=== PATIENT | male | born 1950 | race Caucasian/White ===

== ENCOUNTER 2025-05-05 07:23 | Day surgery (SDC) | payer MEDICARE, OTHER, SELFPAY ==
[2025-05-05] VITALS (10 sets, daily range): BP systolic 112–177; BP diastolic 61–76; BMI 35.5
[2025-05-05 08:04] LABS: Glucose - Point of Care 101 mg/dl (70-99)
[2025-05-05] MEDS: NSS 327 ML IV (08:14)
[2025-05-05] MEDS: LOW STRENGTH ASPIRIN 81 MG PO (08:15)
--- NOTE | 2025-05-05 14:19 | CONSULT.STRU ---
Consultation
-
Date/Time Consultation Requested: 05/05/2025 1100
Date/Time Consultation Performed: 05/05/2025 1230
Requesting Provider: Dr. Wanda Contreras
Performing Provider: FRANKIE Munguia
Reason for Consultation: Aortic stenosis/ TAVR evaluation
Patient History
Physicians
Family Physician: Curt Stern
Outpatient Handle Attacher: Moises Potts
Primary Handle Attacher: Moises Potts
History of Present Illness
Mr. Pérez is a pleasant 74yo male with past medical history that is significant for HTN, hyperlipidemia, DM type 2 and interstitial lung disease/ pulmonary fibrosis (Pulm: Dr. Wu) and known aortic stenosis. Patient follows as an outpatient
with Dr. Potts. He presents today for cardiac cath as part of his evaluation. He reports GONZALEZ after walking a couple blocks. He denies CP, palpitations, orthopnea or PAD. He does have chronic LE edema. His TTE on 01/06: LVEF 55-60%. Grade I Diastolic
dysfunction. Mild to moderately dilated left atrium. Aortic valve is focally thickened/calcified, trileaflet, restricted opening. PG/M.3/36.4, MAYNOR 0.71. Mild MR. Moderately elevated pulmonary artery systolic pressure
Reviewed the pathophysiology of aortic stenosis with the patient and his . Explained the treatment options of SAVR and TAVR. Explained the TAVR evaluation process including follow up BMP, CT TAVR scan, CT surgery consult and Heart Team
discussion. Provided with script for BMP next week, script and appointment for CT TAVR, Consult appointment with Dr. Thompson and a copy of the TAVR education booklet with contact information. Allowed for and answered questions.
Past Medical History
Past Medical History: GONZALEZ, HTN, Hypercholesterolemia, NIDDM and Valvular Disease (Aortic stenosis, Mild MR)
Past Surgical History
Past Surgical History: Tonsilectomy
Dental History
Regular dental care: Appointment 06/[address] Jackson Mock [phone]
Family History
Mother: N/A
Father: N/A
Social History
Alcohol: Occasional
Drug: None
Tobacco: Former Smoker
Personal:
Living: With Spouse
Employment: Retired
Allergies
Allergy/AdvReac Type Severity Reaction Status Date / Time
No Known Allergies Allergy Unverified 05/05/25 07:47
Home Medications
�Medication �Instructions �Recorded �Confirmed �Type
amlodipine 5 mg tablet 5 mg PO HS 05/05/25 05/05/25 History
aspirin 81 mg tablet 81 mg PO DAILY 05/05/25 05/05/25 History
indomethacin 50 mg capsule 50 mg PO QID 05/05/25 05/05/25 History
losartan 25 mg tablet 25 mg PO HS 05/05/25 05/05/25 History
metformin 500 mg tablet 500 mg PO BID 05/05/25 05/05/25 History
pioglitazone 45 mg tablet 45 mg PO HS 05/05/25 05/05/25 History
rosuvastatin 20 mg tablet (Crestor) 20 mg PO DAILY #30 tabs 05/05/25 Rx
semaglutide 1 mg/dose (4 mg/3 mL) 1 mg SC QWEEK 05/05/25 05/05/25 History
subcutaneous pen injector (Ozempic)
STS%
STS %: 1.3%
Review of Systems
-
History Source: Patient and Family
General: Reports Fatigue
HEENT: Reports No Symptoms
Respiratory: Reports GONZALEZ and Other (Interstitial Fibrosis (Dr. Wu))
Cardiac: Reports Edema; Denies Chest Pain, Palpitations, Nausea or Vomiting
Abdomen/GI: Reports No Symptoms; Denies Abdominal Pain, Reflux, Indigestion, Nausea or Vomiting
: Reports No Symptoms; Denies Dysuria
Musculoskeletal: Reports No Symptoms
Skin: Reports Other (Bilateral LE with chronic skin changes)
Neurological: Reports No Symptoms; Denies CVA, TIA, Headaches, Syncope or Dizzy
Vascular: Reports No Symptoms
Physical Exam
Vital Signs
Temp 97.0 F 05/05/25 07:50
Temp route: Temporal 05/05/25 07:50
Pulse 50 05/05/25 13:00
Resp Rate 20 05/05/25 13:00
Blood pressure 143/67 05/05/25 13:00
Blood pressure extremity used: Right upper arm 05/05/25 07:50
Position: Lying 05/05/25 07:50
MAP (cuff-Rhoda Monitor) 89 05/05/25 13:00
SaO2 95 05/05/25 13:00
Oxygen Mode of Delivery Room air 05/05/25 07:50
Can the patient verbally communicate their pain? Yes 05/05/25 13:19
Actual Weight 109 kg 05/05/25 07:43
Body Mass Index (BMI) 35.5 05/05/25 07:43
Labs
04/17/2025 [facility]
BUN/Creat: 23/1.34
GFR: 55
WBC: 8.1
HGB: 13.1
HCT: 40.2
Platelets: [id number]
Diagnostic Studies
04/13/2025 Echocardiogram:
-LVEF 55-60%
-Grade I Diastolic dysfunction
-Mild to moderately dilated left atrium
-Aortic valve is focally thickened/calcified, trileaflet, restricted opening
-Mild MR
-Moderately elevated pulmoonary artery systolic pressure
Exam
General: Well Developed, Well Nourished, No Apparent Distress and Comfortable
HEENT: Normocephalic, PERRLA and EOMI
Neck: Trachea Midline
Respiratory: Crackles (Bilaterally)
Cardiac: S1/S2, Regular Rhythm and Murmur (Grade II/ BRIAN)
GI: Soft, Non Tender, Non Distended and Normal Bowel Sounds
Rectal: Deferred by Provider
Skin: Warm, Dry and Other (Chronic venous stasis changes bilateral LE)
Neuro: AO x 3 and Nonfocal/Grossly Intact
Extremities: Lower Level Edema (+1 bilateral LE) and Pulses (palpable pedal pulses)
Psych: Calm
Assessment / Plan
-
Procedure Type:�Isolated AVR
Perioperative Outcome Estimate %
Operative Mortality 1.3%
Morbidity & Mortality 8.88%
Stroke 1.1%
Renal Failure 2.06%
Reoperation 3.26%
Prolonged Ventilation 3.57%
Deep Sternal Wound Infection 0.062%
Long Hospital Stay (>14 days) 3.96%
Short Hospital Stay (<6 days)* 53.1%
Severe Aortic stenosis:
����������� Continue evaluation for aortic stenosis as outpatient
����������� BMP 05/12/2025
����������� CT TAVR scan 05/18/2025 at
����������� CT surgery consult with Dr. Thompson 05/25/2025
����������� Dental Clearance � appointment 06/04- Dr Toney
����������� Heart team discussion at [facility]
Initiate Aspirin 81mg prior to TAVR
Data Reviewed
-
EKG: Report Reviewed by me
Claim Attorney: Discussed with Physician
Echo: Report Reviewed by me, Discussed with Patient and Discussed with Family
Labs: Labs Reviewed by me
Old Records: Reviewed (office notes)
Total Time Spent with Patient (in minutes): 30
--- NOTE | 2025-05-05 16:44 | ITS.CL.CATH ---
Retail Sales Consultant - Catheterization
Cardiac Catheterization
Procedure Report:
LEFT AND RIGHT HEART CATHETERIZATION
Date of Procedure: May 05, 2025
Referring: Moises Potts MD
PROCEDURES:
1. Left heart catheterization, coronary angiogram.
2. Moderate sedation.
3. Right heart catheterization
INDICATION: Ongoing dyspnea on exertion in the setting of abnormal stress test and moderate to severe aortic stenosis by echocardiogram with mean transaortic gradient of 36 mmHg
ACCESS: Right radial artery, 6Fr. sheath, under US guidance.
HEMODYNAMICS : (mmHg)
RA (m) : 6
RV (s/d,m) : 26/, 3
PA (s/d, m) : 27/, 19
PCWP (m) : 10
PA saturation: 55.5% on room air
AO saturation: 95.6% on room air
SVC saturation: 54.7% on room air
Cardiac Output : 4.25 L/min By Rodolfo calculation
Cardiac Index : 1.90 L/min/m-2 By Rodolfo calculation
Systemic vascular resistance: 1394 dsc^(-5)
Pulmonary vascular resistance: 2.08 clayton unit
AO (s/d) : 114/60
LVEDP : 12
Transaortic mean gradient of 32 to 33 mmHg with aortic valve area of 1.03 and aortic valve area indexed by BSA of 2.23 of 0.46 cm�/m2 consistent with severe aortic stenosis.
CORONARY FINDINGS
Dominance: Right
Left Main Trunk (LMT): Large caliber vessel that gives rise to the LAD and LCx branches and is free of angiographic disease.
Left Anterior Descending Artery (LAD): Large caliber vessel that gives off 2 major diagonal branches as it courses along the anterior inter-ventricular groove before wrapping around the cardiac apex. There is mild diffuse atherosclerotic plaque
Left Circumflex Artery (LCx): Large caliber vessel that gives off 2 major obtuse marginal (OM) branches as it courses along the atrio-ventricular (AV) groove. Mid left circumflex artery between the 2 OM branches has tubular 30% stenosis.
Right Coronary Artery (RCA): Large caliber dominant vessel that gives rise to the posterior descending artery (RPDA) and postero-lateral ventricular (RPLV) branches distally. Mid RCA has 30 to 40% stenosis without evidence of any obstructive
coronary artery disease.
SEDATION: 37 minutes of procedural sedation was utilized. IV Midazolam and IV Fentanyl were administered. An independent medical clerical assistant was present to assist with and help manage the patient's level of consciousness and physiologic status.
RADIATION SUMMARY: Fluoro Time (min): 5.1, Dose (mGy): 442.77, DAP (Gy.cm2) : 28.0
Closure Device: There were no immediate intra-procedural complications. The sheath was pulled in the union laborer and a vascular-band applied to the right wrist for radial artery hemostasis using the patent hemostasis technique.
CONCLUSIONS
1. No obstructive coronary artery disease. Mild to moderate CAD.
2. Near normal left and right-sided filling pressures with mildly reduced cardiac output.
3. Transaortic mean gradient of 32 to 33 mmHg with aortic valve area of 1.03 and aortic valve area indexed by BSA of 2.23 of 0.46 cm�/m2 consistent with severe aortic stenosis.
RECOMMENDATIONS
1. Wean radial band per protocol. Monitor right hand perfusion and for bleeding from the radial site following removal of the vascular-band following trans-radial access.
2. Continue aggressive medical therapy and risk factor modification for secondary CAD prevention.
3. Continue workup for transcatheter aortic valve replacement by pursuing a CT angio of chest, abdomen and pelvis along with CT surgery consult and plan to discuss at structural meeting once workup is completed.
Copy to: Moises Potts MD
Wanda Contreras MD, [facility], [facility]
== END 2025-05-05 13:45 | disposition home or self-care (01) ==
LOC: CATH 07:23
PROVIDERS: ATTENDING PHYSICIAN Internal Medicine Interventional Cardiology; FAMILY PHYSICIAN Internal Medicine; OTHER PHYSICIAN Internal Medicine Cardiovascular Disease
DX: I35.0 Nonrheumatic aortic (valve) stenosis (principal); I25.10 Atherosclerotic heart disease of native coronary artery without angina pectoris; E11.9 Type 2 diabetes mellitus without complications; E78.00 Pure hypercholesterolemia, unspecified; I11.9 Hypertensive heart disease without heart failure; J84.10 Pulmonary fibrosis, unspecified; Z79.82 Long term (current) use of aspirin; Z79.85 Long-term (current) use of injectable non-insulin antidiabetic drugs; Z79.899 Other long term (current) drug therapy; Z79.84 Long term (current) use of oral hypoglycemic drugs; Z87.891 Personal history of nicotine dependence
CPT/HCPCS: 99152; 99153; 82962; 93460; C1894; Q9967

== ENCOUNTER → 2025-05-18 09:07 | Outpatient (REF) | payer MEDICARE, OTHER, SELFPAY | LOC: RAD 09:07 | PROVIDERS: ATTENDING PHYSICIAN Nurse Practitioner Adult Health; FAMILY PHYSICIAN Internal Medicine | DX: I35.0 Nonrheumatic aortic (valve) stenosis (principal) | CPT/HCPCS: 74174; 75572; Q9967 ==

== ENCOUNTER 2025-07-09 04:55 | Inpatient (IN) | payer MEDICARE, OTHER, SELFPAY ==
--- NOTE | 2025-07-01 10:45 | HPS.HSE ---
Family Physician
-
Family Physician: Curt Stern
Director Of Hotel: Moises Potts
Chief Complaint
-
Aortic stenosis, Pre-operative H&P
History of Present Illness
Mr. Pérez is a pleasant 74yo male with past medical history that is significant for HTN, hyperlipidemia, DM type 2 and interstitial lung disease/ pulmonary fibrosis (Pulm: Dr. Wu) and known aortic stenosis. Patient follows as an outpatient
with Dr. Potts. He underwent cardiac cath on 05/05 as part of his evaluation which demonstrated mild to moderate CAD. Near normal left and right-sided filling pressures with mildly reduced cardiac output.� Transaortic mean gradient of 32 to 33 mmHg
with aortic valve area of 1.03 and aortic valve area indexed by BSA of 2.23 of 0.46 cm2/m2 consistent with severe aortic stenosis. His TTE on 01/06: LVEF 55-60%. Grade I Diastolic dysfunction. Mild to moderately dilated left atrium. Aortic valve is
focally thickened/calcified, trileaflet, restricted opening. PG/M.3/36.4, MAYNOR 0.71. Mild MR. Moderately elevated pulmonary artery systolic pressure. He reports GONZALEZ after walking a couple blocks. He denies CP, palpitations, orthopnea or PAD. He
does have chronic LE edema. Patient was reviewed by the structural heart team and TAVR utilizing a 26mm S3 valve was felt to be the appropriate treatment. He presents today for pre-admission testing in anticipation of TAVR next week.
Medical History
Past Medical History
Past Medical History: Reports CAD, HTN, Hypercholesterolemia, NIDDM, Valvular Disease (severe , mild MR, mild TR) and Other (Gout, interstitial fibrosis)
Past Surgical History: Reports Tonsilectomy
Social History
Tobacco: Former Smoker
Alcohol: Occasional
Drug: None
Personal:
Living: With Family
Employment: Retired
Family History
Family History: CAD
Allergies / Home Medications
Allergies reflects when Allergies were last updated in [employer].
Home Medications with original date entered in [employer]
Allergy/Medication List:
Allergies:
NKDA
Medications:
amLODIPine Besylate 5 MG Tablet 1 tablet Orally Once a day
Aspirin 81 MG Tablet Delayed Release 1 tablet Orally Once a day
Indomethacin 50 MG Capsule 1 capsule with food or milk Orally PRN
Losartan Potassium 25 MG Tablet 1 tablet Orally Once a day
metFORMIN HCl 500 MG Tablet 2 tablets Orally twice a day
Ozempic (1 MG/DOSE)(Semaglutide (1 MG/DOSE)) 4 MG/3ML Solution Pen-injector Subcutaneous
Pioglitazone HCl 45 MG Tablet 1 tablet Orally Once a day
Rosuvastatin Calcium 20 MG Tablet 1 tablet Orally Once a day
Review of Systems
-
History Source: Patient
Constitutional: Reports No Symptoms
EENT: Reports Other (post nasal drip)
Respiratory: Reports Cough (occasional, non-productive) and Other (GONZALEZ)
Cardiac: Reports No Symptoms; Denies Chest Pain, Palpitations or Syncope
Abdomen/GI: Reports No Symptoms; Denies Abdominal Pain, Nausea or Vomiting
: Reports No Symptoms; Denies Dysuria
Musculoskeletal: Reports No Symptoms and Edema (mild bilateral LE)
Skin: Reports No Symptoms
Neurological: Reports No Symptoms
Endocrine: Reports No Symptoms
Hematologic/Lymphatic: Reports No Symptoms
Psych: Reports No Symptoms and Calm
Physical Exam
Physical Exam
General: Well Developed, Well Nourished, No Apparent Distress and Comfortable
HEENT: NormoCephalic and PERRLA
Respiratory: Clear; No Wheezes, Rales, Rhonchi or Crackles
Cardiac: S1/S2, Regular Rhythm and Murmur (Grade II/ BRIAN); No Peripheral Edema
Breast: Deferred by me
GI: Soft, Non Tender, Non Distended and Normal Bowel Sounds
Rectal: Deferred by Provider
Genito-urinary: Deferred by me
Musculoskeletal: No Clubbing, No Cyanosis and Normal Gait & Station
Skin: Warm and Dry
Neuro: AO x 3 and Nonfocal/grossly intact
Psych: Calm and Intact Judgment/Insight
Data Reviewed
-
CT Scan: Report Reviewed by me and Discussed with Physician
Medical Tests (Nuc Med, Echo, EKG etc): Report Reviewed by me (Bifascicular block- tiger text to EP physicians to make aware)
Lab Data: Labs Reviewed by me
Old Records: Reviewed
Impression/Plan
-
IMPRESSION:
Severe Aortic Stenosis
PLAN:
-Proceed with TF-TAVR utilizing a 26mm S3 valve (0500 arrival)
-Hold Ozempic, Continue all medications until 07/08 and take only aspirin 81mg the morning of prior to arrival
-Continue Aspirin 81mg post op
-POD #1/#30 echocardiogram
-Cardiac rehab consult
-Life long antibiotic prophylaxis prior to dental visits.
Laboratory Results
-
Laboratory Data
07/01/25 12:40
07/01/25 12:40
PT 13.5 Sec (11.4-14.6) 07/01/25 12:40
INR 0.98 07/01/25 12:40
Total Bilirubin 0.5 mg/dl (0.2-1.3) 07/01/25 12:40
Direct Bilirubin 0.2 mg/dl (0.0-0.4) 07/01/25 12:40
AST 24 U/L (17-59) 07/01/25 12:40
ALT 16 U/L (0-50) 07/01/25 12:40
Alkaline Phosphatase 58 U/L (38-126) 07/01/25 12:40
Total Protein 8.4 g/dl (6.3-8.2) H 07/01/25 12:40
Albumin 4.7 g/dl (3.5-5.0) 07/01/25 12:40
[2025-07-01 12:23] VITALS: BMI 35.3
[2025-07-01 13:09] LABS: Hematocrit 39.7 % (39.0-52.0); Hemoglobin 13.0 g/dL (13.0-18.0); Mean Corp Hgb Conc. 32.7 g/dL (33.0-37.0); Mean Corpuscular Volume 91.1 fL (80.0-94.0); Nucleated Red Blood Cells % 0 % (-); Platelet Count 208 10^3/uL (130-400); Red Cell Dist. Width 13.7 % (11.5-14.5)
[2025-07-01 13:14] LABS: Urine Character Clear (Clear)
[2025-07-01 13:15] LABS: INR 0.98; PT 13.5 Sec (11.4-14.6)
[2025-07-01 13:31] LABS: Glycohemoglobin (HgbA1c) 6.1 % (4.0-5.9)
[2025-07-01 13:44] LABS: Urine Squamous Cell 0-2 /LPF (Few)
[2025-07-01 13:44] LABS: ALT (SGPT) 16 U/L (0-50); AST (SGOT) 24 U/L (17-59); Albumin 4.7 g/dl (3.5-5.0); Alkaline Phosphatase 58 U/L (38-126); Blood Urea Nitrogen 22 mg/dl (9-20); Calcium 9.3 mg/dl (8.4-10.2); Carbon Dioxide 28 mmol/L (22-30); Chloride 101 mmol/L (98-107); Estimated Creatinine Clearance 64 ml/min; Glucose 104 mg/dl (70-99); Potassium 5.1 mmol/L (3.5-5.1); Sodium 137 mmol/L (135-145); Total Protein 8.4 g/dl (6.3-8.2); eGFR > 60.00
[2025-07-01 13:45] LABS: Urine Red Blood Cell 0-2 /HPF (0-2); Urine White Cell 0-2 /HPF (0-5)
--- NOTE | 2025-07-01 14:18 | CM ---
Met with and Mrs. Nunes in [facility]'s to review discharge plans. He states prior to admission he resides with his spouse in a expanded ranch home. There is a finished attic on the upper floor. He states he has a first floor set-up. He states
prior to admission he was independent with ambulation and adls. He states he does not have any DME in the home. He states he has a prescription plan and uses [facility]. His spouse states she will be home over the weekend to assist inh is
care if needed. Currently his daughter and son-in-law and 4 month old baby is staying with them. The discharge plan is to return home with his spouse and a home visit by the Transitional Care Nurse when medically stable.
We reviewed pre-op and post-op routines. We reviewed the shower instructions. He has the soap, written instructions and the TAVR Educational Booklet. We reviewed restrictions including driving and lifting restrictions. We discussed a home visit
by the Transitional Care Nurse. His is agreeable to a home visit. The plan is for TAVR on 07/09/25.
[2025-07-09] VITALS (27 sets, daily range): BP systolic 70–168; BP diastolic 35–96; BMI 34.5
[2025-07-09 05:11] LABS: Glucose - Point of Care 126 mg/dl (70-99)
--- NOTE | 2025-07-09 05:34 | PTCARENOTE ---
Received patient as a direct admit for a TAVR. Alert and oriented. SR with a BBB on the monitor, HR in the 60s. VSS on room air. Confirmed 81mg Aspirin taken at 03:50, NPO since midnight. Confirmed CHG shower at home x2. Patient clipped and CHG
wiped. IV access obtained and ABO2 sent. Blood sugar 126. Admission assessment completed. No complaints from pt at this time, call kinney within reach, in room.
--- NOTE | 2025-07-09 06:05 | W.CVOR.SURPR ---
CVOR Surgeon Immed Pre Op
-
I have examined this patient prior to performance of the scheduled procedure.
The patient's condition is unchanged from the time of the dictated/written History and
Physical and the patient is able to undergo the scheduled procedure.
TF TAVR, Full Rescue
--- NOTE | 2025-07-09 07:30 | PTCARENOTE ---
Rec'd report on pt from prev nsg shift. Pt already taken for procedure prior to this RN's arrival. Spouse in rm waiting for pt. Plan of care ongoing.
[2025-07-09] MEDS: ANCEF 10 IV ×2 (07:36)
[2025-07-09 07:42] LABS: Urine Character Clear (Clear)
[2025-07-09 08:35] LABS: Urine Squamous Cell 0-2 /LPF (Few); Urine White Cell 0-2 /HPF (0-5)
--- NOTE | 2025-07-09 08:50 | W.PN.CT.SURG ---
CT Surgery Operative Note
-
OPERATIVE REPORT
Preoperative Diagnosis: Severe aortic valve stenosis, symptomatic
Postoperative Diagnosis: Same
Procedure(s) Performed: Left trans femoral TAVR with a 26 mm nominal Petit TAVR valve
Date of Procedure: 07/09/2025
Comorbidities:
1. Severe aortic stenosis, symptomatic
2. Severe interstitial pulmonary fibrosis
3. Hypertension
4. Hyperlipidemia
5. 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
6. Gout
7. Diabetes
Cardiac Surgeon: Rodri Thompson MD, MS
Fast Food Shift Supervisor: Wanda Contreras MD
Anesthesia: LMA and Local Analgesia
EBL: 100cc
Products: none
Implant: 26 mm Petit LAVINIA Resilia TAVR valve, SN: [id number]
Indication(s) for Procedures: 74-year-old male with symptomatic severe aortic stenosis. CT-TAVR protocol revealed acceptable anatomy for TAVR access and implantation. Given the tortuosity his right common iliac vessels, we opted to perform left
side access and placed a longer sheath of the right side for pigtail access.
Start time: 0759hrs
Deployment time: 0832hrs
End time: 0842hrs
Radiation Dose (mGy): 419.80
DAP (cm2.Gy): 37.2578
Fluoroscopy time (minutes): 6.8
Contrast volume (ml): 85
TAVR gradient (mmHg): 7mmHg
Heparin Dose: 9000units
Protamine Dose: 40mg
Final Valve Positionin/15
LVEPD: 20mmHG
Findings: Preoperative LVEF was 65% and was 65% following TAVR without inotropic support. Function was overall normal without regional wall motion abnormalities or dyskinesia. The aortic valve was well seated without detectable PVL and mean gradient
across the new valve was 7-9mmHg. after deployment of valve, he immediately regained his koi rhythm and returned to sinus while on the record label internship table. There was successful placement of 26 mm nominal TAVR valve without acute complications. Of
note, he had severe bladder distention on his preoperative CT scan. A Mckinney was placed preemptively and drained over 3 L immediately. The Mckinney with the left in place postoperatively.
Access:
1. Device -left common femoral artery, perclose x 2
2. Pigtail -right common femoral artery [+ 6Fr angioseal]
3. Transvenous Pacer -right common femoral vein
Description of Procedure: The patient was taken to the record label internship. Their identity and procedure to be performed were verified and they were positioned supine on the record label internship table. Induction via conscious sedation. The patient was then prepped and
draped from chin to thigh in a sterile fashion. A preoperative time-out was performed with all members of the team present. Arterial and venous access was performed using fluoroscopy and ultrasound guidance with micropuncture and Seldinger
technique. Two perclose devices were used on the device side followed by access to the aorta with a stiff wire to facilitate E-sheath placement. Heparin was given. A stiff straight wire and AL-1 catheter was used to cross the aortic valve. An LVEDP
was measured. The stiff wire was exchanged for an extra stiff coiled tip wire. The valve was prepped and mounted on to the device carrier. An ACT of >250 was achieved. We verified x 3 that the valve was mounted in the correct orientation with the
skirt of the valve directed toward the tip of the device carrier. We advanced the device into the descending thoracic aorta where the valve was them mounted onto the balloon under fluoroscopy. The device was flexed and advanced over the arch into
the root and positioned across the aortic valve. Contrast fluoroscopy was used to visualize the prosthesis across the valve and to guide positioning. A pigtail catheter in the RCC as used as a guide. We aimed to have the bottom of the device marker
at the annular hinge point. The device sheath was pulled back. We performed a quick pre-deployment time out. The pacer was turned on and had capture. Blood pressure fell accordingly, angiography was done to verify the intended final placement and
the valve was deployed with 5 seconds of rapid pacing to nominal volume. The balloon was deflated and the pacer was turned off. We had recovery of vitals. The device carrier was unflexed and positioned back in the descending thoracic aorta. A
transthoracic echocardiogram was performed. The device was removed from the E-Sheath maintaining wire access followed by removal of the E-sheath as we cinched down the perclose devices. There was acceptable hemostasis. The pigtail was withdrawn into
the descending/abdominal and completion aortogram with runoff run-off angiography was performed. There was no stenosis or dissection of bilateral iliofemoral systems. There was acceptable hemostasis of bilateral groins and manual pressure was held
following wire removal. Low dose protamine was administered after checking another ACT.
All instrument, sponge, and needle counts were confirmed to be correct x 2 at the end of the operation. The patient was transferred to the cardiac intensive care unit in stable condition.
I, Dr. Rodri Thompson, was present, scrubbed for, and performed all critical elements of this procedure.
Rodri Thompson MD
Cardiothoracic Surgeon
[facility]
This operative dictation was created using the [employer] dictation system. Please excuse any grammatical, typographical, or 'sound alike' errors
[2025-07-09 09:03] LABS: ALT (SGPT) 13 U/L (0-50); AST (SGOT) 20 U/L (17-59); Albumin 3.7 g/dl (3.5-5.0); Alkaline Phosphatase 51 U/L (38-126); Blood Urea Nitrogen 30 mg/dl (9-20); Calcium 8.1 mg/dl (8.4-10.2); Carbon Dioxide 22 mmol/L (22-30); Chloride 107 mmol/L (98-107); Estimated Creatinine Clearance 58 ml/min; Glucose 122 mg/dl (70-99); Magnesium 1.9 mg/dl (1.6-2.3); Potassium 4.2 mmol/L (3.5-5.1); Sodium 138 mmol/L (135-145); Total Protein 7.0 g/dl (6.3-8.2); eGFR 56.93
--- NOTE | 2025-07-09 09:13 | ITS.CL.TAVR ---
[facility] - TAVR Report
TAVR PRocedure
Procedure Report:
TRANSCATHETER AORTIC VALVE REPLACEMENT
Date of Procedure: July 09, 2025
Referring: Moises Potts MD
Operators: Drs. Wanda Contreras and Rodri Thompson
PROCEDURE PERFORMED:
1. Successful placement of 26 mm Petit Mehrdad S3 aortic valve via left common femoral approach.
2. Ultrasound-guided access.
3. Bilateral femoral angiography.
ACCESS:
1. Right common femoral artery, 6 Moroccan sheath, under ultrasound guidance using a micropuncture kit.
2. Right common femoral vein, 6 Moroccan sheath, under ultrasound guidance using a micropuncture kit.
3. Left common femoral artery, 8 Moroccan sheath, under ultrasound guidance using a micropuncture kit.
Ultrasound was utilized for vascular access. The right and left femoral artery and vein were visualized under ultrasound, and the vessels was patent and arteries were pulsatile. An image was stored permanently in the patient's medical record.
Under direct ultrasound guidance, a 6 Moroccan sheaths was inserted into the right common femoral artery and vein, and an 8 Moroccan sheath in the left common femoral artery, respectively, using a micropuncture kit through a modified Seldinger technique.
PREPROCEDURE NYHA CLASS: II
DESCRIPTION OF PROCEDURE: The patient was referred for assessment of severe symptomatic aortic stenosis and following a comprehensive evaluation it was felt that transcatheter aortic valve replacement (TAVR) would be the most appropriate treatment.
Informed consent was obtained prior to the procedure. A 'time-out' was called and the procedural plan was verbally confirmed by anesthesia, surgery, perfusion, and clinical lab clerk staff.
Arterial and venous access site were obtained in the right common femoral artery and vein using ultrasound guidance and micropuncture technique. 6 Fr. sheaths were inserted.
A 5 Fr. transvenous pacing wire was advanced to the right ventricle where excellent pacing thresholds were obtained.
A 5 Fr. pigtail catheter was then advanced to the proximal ascending aorta / right aortic cusp where angiography was performed in multiple angles to define the co-planar angle that was most appropriate valve deployment (GERMAN 1/caudal 16).
Ultrasound guidance was then used to obtain arterial access in the left common femoral artery and a 4 Fr. micropuncture sheath was inserted. Angiography was performed and the arteriotomy site appeared appropriate for preclosure with two Perclose
devices. An 8 Fr sheath was then inserted back into the common femoral artery over a J-tipped guidewire. An AL1 catheter was positioned in the proximal descending aorta. An Extra Stiff 0.035' J-tip wire was inserted to provide extra-support to
facilitate the Petit eSheath delivery. The 16 Fr. Petit eSheath was successfully advanced in the descending thoracic aorta.
An AL1 catheter was advanced through the Petit eSheath over a 0.035' J-tip guide wire. The AL1 catheter was positioned just above the aortic valve. A 0.035' Straight tip wire probed the aortic valve and crossed the stenotic leaflets. The AL1
was then advanced to the mid left ventricle. Estimated LV end-diastolic pressure invasively was 20 mm of ricky. An Amplatz Extra-stiff wire with a generous curved tip was then positioned in the left ventricular apex. A 26 mm Petit Mehrdad S3 valve
was brought to the table and the orientation of the valve on the balloon delivery system was confirmed by all operators. The Mehrdad S3 valve was advanced through the eSheath and into the proximal descending thoracic aorta. The Mehrdad S3 valve was
centered on the delivery balloon and the entire system was retroflexed as it crossed the aortic arch. The Mehrdad S3 delivery system was then advanced across the stenotic valve and the 26 mm Mehrdad S3 valve was deployed during rapid pacing. The
valve deployment was uneventful. Transthoracic echocardiographic images post valve deployment revealed minimal aortic insufficiency with excellent position of the aortic prosthesis.
The Petit balloon and delivery system were then removed. The Petit sheath was removed and the Perclose knots were advanced to the arteriotomy site resulting in excellent hemostasis.
Femoral angiography: Femoral arteriotomy bilaterally is noted to be above the bifurcation and below the inferior epigastric artery. There is minimal luminal irregularities in the visualized external iliac and femoral vessels.
CONCLUSIONS:
1. Severe symptomatic aortic stenosis. Successful deployment of a 26 mm Mehrdad S3 valve with minimal aortic insufficiency post procedure
2. Successful arteriotomy closure with 2 Perclose devices.
3. Acute on chronic diastolic heart failure with LVEDP of
Wanda Contreras MD, FAC, [facility]
Copy to: Moises Potts MD and Curt Stern MD
[2025-07-09] MEDS: LEVOPHED 250 IV (09:35)
--- NOTE | 2025-07-09 09:54 | CM ---
pt in OR today, cm following
[2025-07-09 10:03] LABS: Glucose - Point of Care 124 mg/dl (70-99)
--- NOTE | 2025-07-09 11:05 | PTCARENOTE ---
Rec'd report from Erna in the carpenter labor supervisor; Rec'd pt AAOx3, drowsy but easily arousable. Pt w/no c/o CP or SOB. HR low in the 40's at rest, MDs aware. BP stable at 126/57. Pt w/bilat groin sites w/dressing intact. L dressing w/marked sanguineous
shadowing unchanged from prev assessment. No signs or symptoms of bleeding or hematomas bilat. Pt is in a junctional rhythm w/a BBB on telemetry monitoring. Pacer pads in place but not connected at this time. Spouse at bedside. Pt & spouse advised
of strict bedrest restrictions until 1330 this afternoon & both verbalized their understanding. Pt w/call kinney within reach.
[2025-07-09 12:43] LABS: ACT-LR - POC > 397 Seconds (116-155)
[2025-07-09] MEDS: FLUSH (NSS) 2 FLUSH IV (16:28)
[2025-07-09] MEDS: ANCEF 5 IV (16:28)
--- NOTE | 2025-07-09 21:19 | CONS.URO ---
Consultation
-
Date/Time Consultation Performed: 07/09
Performing Provider: Isatufer
Reason for Consultation: Retention
Medical History
History of Present Illness
74M admitted post TAVR
In April had a CT scan showing massively distended bladder with L hydroureteronephrosis, c/w chronic outlet obstruction
He was not aware of these findings
TAVR was done today and 3L was drained from the bladder after dey placement
Urology consulted for eval
Patient has no urologic history
He has noted some slowing of stream, frequency, and post void dribbling over the years
Has not been on any meds or seen a urologist in the past
Past Medical History
Past Medical History: Other (See H&P)
Family History
Family History: Reviewed & Not Pertinent
Allergies/Home Medications
Allergies
Allergy/AdvReac Type Severity Reaction Status Date / Time
No Known Allergies Allergy Verified 06/26/25 13:54
Home Medications
�Medication �Instructions �Recorded �Confirmed �Type
amlodipine 5 mg tablet 5 mg PO DAILY 05/05/25 07/09/25 History
aspirin 81 mg tablet 81 mg PO DAILY 05/05/25 07/09/25 History
indomethacin 50 mg capsule 50 mg PO PRN PRN GOUT 05/05/25 07/09/25 History
losartan 25 mg tablet 25 mg PO HS 05/05/25 07/09/25 History
metformin 500 mg tablet 500 mg PO BID 05/05/25 07/09/25 History
pioglitazone 45 mg tablet 45 mg PO DAILY 05/05/25 07/09/25 History
rosuvastatin 20 mg tablet (Crestor) 20 mg PO DAILY #30 tabs 05/05/25 07/09/25 Rx
semaglutide 1 mg/dose (4 mg/3 mL) 1 mg SC QWEEK 05/05/25 07/09/25 History
subcutaneous pen injector (Ozempic)
Physical Exam
Vital Signs
Vital Signs
Temp Pulse Resp BP Pulse Ox
99 F 57 18 121/50 97
07/09/25 19:12 07/09/25 16:30 07/09/25 19:12 07/09/25 16:00 07/09/25 20:45
Lab / Testing Results
Laboratory Results
07/01/25 12:40
07/09/25 08:21
Physical Exam
General: Well Developed, Well Nourished and No Apparent Distress
Respiratory: Non Labored Respirations
GI: Soft and Non Tender
Genito-urinary: Bloody Urine and Dey Catheter
Neuro: AO x 3
Psych: Calm and Intact Judgement
Assessment / Plan
-
74M with chronic severe urinary retention with L hydroureteronephrosis due to ureteral reflux
Massive prostatomegaly with prostate volume 198cc
Dey placed periop with 3L urine drained from bladder
- Maintain dey catheter at discharge. Will stay in for at least 2 weeks prior to any trial of void or bladder testing
- Start tamsulosin 0.4mg daily and finasteride 5mg daily. Patient interested in exhausting any minimally invasive or noninvasive options, though medications are very unlikely to be effective
- Outpatient follow up for additional workup
- Trend mild hematuria following catheter placement
Data Reviewed
-
CT Scan: Image personally visualized and interpreted
Lab Data: Labs Reviewed
[2025-07-10] VITALS (7 sets, daily range): BP systolic 109–168; BP diastolic 54–90; PULSE 70; O2SAT 96; BMI 33.9
--- NOTE | 2025-07-10 00:48 | PTCARENOTE ---
Received pt at change of shift OOB in the chair. SR w/ BBBC on tele, HR 60's-70's. L groin site C/D/I, R groin site intact w/ pink shadowing marked on dressing. No oozing or hematoma noted at this time. pt w/ dey catheter in place, stat lock
intact, urine blood tinged. Dey catheter care performed by RN. Encouraged pt to call RN for assistance ambulating or w/ any questions/concerns. Call kinney within reach.
[2025-07-10 04:02] LABS: Hematocrit 32.8 % (39.0-52.0); Hemoglobin 10.9 g/dL (13.0-18.0); Mean Corp Hgb Conc. 33.2 g/dL (33.0-37.0); Mean Corpuscular Volume 89.9 fL (80.0-94.0); Platelet Count 119 10^3/uL (130-400); Red Cell Dist. Width 13.9 % (11.5-14.5)
[2025-07-10 04:24] LABS: Blood Urea Nitrogen 24 mg/dl (9-20); Calcium 8.3 mg/dl (8.4-10.2); Carbon Dioxide 25 mmol/L (22-30); Chloride 108 mmol/L (98-107); Estimated Creatinine Clearance 75 ml/min; Glucose 96 mg/dl (70-99); Potassium 3.8 mmol/L (3.5-5.1); Sodium 137 mmol/L (135-145); eGFR > 60.00
--- NOTE | 2025-07-10 07:10 | W.PN.ANS.POP ---
Anesthesia Post Operative
- Anesthesia Post Op Note
Vital Signs Stable-See Nursing Note: Yes
Airway Patent: Yes
Adequate Pain Control: Yes
Change in Mental Status: No
Current Postoperative Nausea & Vomiting: No
Anesthesia Complications: No
General Anesthetic Recall: No
Unplanned Admission: No
Post Op Hydration Adequate: Yes
--- NOTE | 2025-07-10 07:58 | W.PN.CT ---
Today's Communication / Plan
-
-pod #1
-no issues overnight
-nsr overnight, no kamila or pauses
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 PEDIATRIC SPEECH THERAPIST without change
-Echo today
-continue current meds
-possible d/c
Assessment / Plan
-
- Severe symptomatic aortic valve stenosis- s/p Left trans femoral TAVR with a 26 mm nominal Petit TAVR valve on 07/09/25, pod #1
- Intraop TTE: Preop LVEF was 65% and was 65% following TAVR without inotropic support. Function was overall normal without regional wall motion abnormalities or dyskinesia. The aortic valve was well seated without detectable PVL and mean gradient
across the new valve was 7-9mmHg.
- Severe interstitial pulmonary fibrosis
- Hypertension
- Hyperlipidemia
- BPH with hydronephrosis secondary to significant bladder distention and urinary retention
- Gout
- Diabetes II
- Preexisting RBBB and LAFB
-Acute postop blood loss anemia
Discussed patient care with: Nursing and Care Team
Subjective
-
Date of Service: July 10, 2025
Objective Data
-
Lab Results
07/10/25 03:21
PT 13.5 Sec (11.4-14.6) 07/01/25 12:40
INR 0.98 07/01/25 12:40
Vital Signs
Vital Signs
Temp Pulse Resp BP Pulse Ox
98.7 F 64 18 126/54 93
07/10/25 03:08 07/10/25 06:00 07/10/25 03:08 07/10/25 03:08 07/10/25 03:08
CT Intake/Output/Weight
07/09/25 07/10/25 07/10/25
18:59 06:59 18:59
Intake Total 2780 / 3740 960 / 3740
Output Total 1375 / 2575 1200 / 2575
Balance 1405 / 1165 -240 / 1165
SaO2: 93
Physical Exam
-
General: Awake and AOx3
Cardiovascular: Regular rate & rhythm, No Murmurs and No Rub
Respiratory: Rales (at bases)
Sternum: Stable
Incision: Clean (groins are cdi, soft, nontender, no hematoma b/l)
Extremities: Edema +1
Data Reviewed
-
Medications: Active Meds Reviewed
Chest X-Ray: Report Reviewed and Image Reviewed
ECG: Report Reviewed and Image Reviewed
[2025-07-10] MEDS: PROSCAR 5 MG PO (08:22)
[2025-07-10] MEDS: ACTOS 45 MG PO (08:22)
[2025-07-10] MEDS: FLOMAX 0.4 MG PO (08:22)
[2025-07-10] MEDS: ASPIR LOW (ENTERIC COATED) 81 MG PO (08:22)
[2025-07-10] MEDS: CRESTOR 20 MG PO (08:22)
--- NOTE | 2025-07-10 09:02 | W.DCSUMMARY ---
Discharge Summary
Discharge Data
Date of Admission: 07/09/25
Date of Discharge: 07/10/25
-
Pending Results: No
Hospital Course
Primary care physician: Curt Stern
Outpatient poultry farmer egg: Moises Potts
Inpatient consultants: SANDRA cardiology, urology
Procedures:
1. TAVR
Primary Diagnosis:
1. Severe aortic stenosis
Secondary Diagnoses:
1. Severe interstitial pulmonary fibrosis
2. Hypertension
3. Hyperlipidemia
4. 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
5. Gout
6. Diabetes II (A1C 6.1)
7. Preexisting RBBB and LAFB
-Acute postop blood loss anemia
- Acute postop urinary retention requiring Mckinney
HPI: 74-year-old male was electively admitted on 07/09/2024 for TAVR due to severe aortic stenosis.
Hospital course: Patient was taken to the Parts [facility] And Stock Clerk and noted to have distended bladder. Mckinney catheter was placed. Patient underwent a left trans femoral TAVR #26 mm nominal Petit TAVR valve by Drs. Rodri Thompson and Wanda Contreras. Patient was
said to be in junctional rhythm postprocedure and AV dane blocking agents were held. If it was briefly on the Parts Order And Stock Clerk recovery area. Blood pressure stabilized in the 50s discontinued. Urology was consulted and recommended keeping the Mckinney for
2 weeks starting Proscar and Flomax. He will need to follow-up with urology as an outpatient in 2 weeks. Metformin will be held for 48 hours postprocedure and resumed on 07/12/2025. Morning ECG reported sinus rhythm with bifascicular block which
is unchanged from preop. Rhythm monitor ordered on discharge. Morning chest x-ray with interstitial fibrosis unchanged from prior. Lasix 20 mg IV x 1 ordered per cardiology for LVEDP of 20 and he will be discharged on Lasix 20 mg p.o. daily. BMP
in 1 week post discharge. TTE reported EF 56%, mild-mod MR, AV 33/18mmHg, mild-mod PVL, tr TR, tr pericardial effusion. Patient will follow-up with Dr. Contreras on 08/13 and primary TTE ordered for 08/[address] Potts's office.
Home medication changes:
Proscar 5 mg daily
Flomax 0.4 mg daily
Discharge Plan
-
Patient Disposition: Home (Routine Discharge)
Discharge Diagnosis/Procedures: TF-TAVR #26mm Petit 07/09/25, Mckinney for urinary retention
Condition: Good
Diet: Low Cholesterol and 2 Gram Sodium
Activity: As tolerated
Driving Restrictions: No driving for 1 week
Bathing Restrictions: OK to Shower
Blood Work: BMP in 1 week
Others Tests: Follow up echocardiogram is scheduled for you at Dr. Potts's office on 08/11/2025 at 12:40pm.
Other Services: Cardiac Rehab
Wound Care: Please do not apply lotions, creams or powders to groin areas. Please monitor for increased pain, redness, swelling or drainage. Notify your doctor if any occur.
Specialty Instructions: Weigh Daily- Call MD for wt gain/loss 3 lbs overnight/5 lbs in 1 week
Referrals:
CT Transitional Care Nurse [Outside]
Referral Note:
The Cardiothoracic Transitional Care Nurse will call you to set up a visit in 1-2 days.
[facility]. Cardiac Rehab [Outside] - 09/01/25 11:00 am
Referral Note: Cardiac Rehab Orientation appointment is on 09/01/25 at 11 am_�
The Cardiac Rehab gym is located on the first floor of the [facility].
Curt Stern MD [Family Provider, Internal Medicine]
Wanda Contreras MD [Active, Cardiology] - 08/13/25 11:20 am
Referral Note: You have a cardiology follow-up appointment post T[facility]R at the [facility]. Please call with questions
Rashda Sofia MD [Active, Urology]
Referral Note: call for appointment in 2 weeks for urinary retention -home with Faye
Additional Discharge Medication Instructions: Resume Metformin on 07/12, continue rosuvastatin
Prescriptions:
New
acetaminophen 325 mg Tablet
650 mg PO Q4HPRN PRN (Reason: MORALES, mild pain, or fever >101F) Qty: 0 0RF
tamsulosin 0.4 mg Capsule
0.4 mg PO DAILY Qty: 30 2RF
finasteride 5 mg Tablet
5 mg PO DAILY Qty: 30 2RF
rosuvastatin 20 mg Tablet
20 mg PO DAILY Qty: 0 0RF
furosemide [Lasix] 20 mg tablet
20 mg PO DAILY Qty: 20 0RF
Rx Instructions:
Take daily for 7 days, then stop
Continued
indomethacin 50 mg Capsule
50 mg PO PRN PRN (Reason: GOUT)
amlodipine 5 mg Tablet
5 mg PO DAILY Qty: 0 0RF
losartan 25 mg Tablet
25 mg PO HS Qty: 0 0RF
aspirin 81 mg Tablet
81 mg PO DAILY Qty: 0 0RF
Ozempic 1 mg/dose (4 mg/3 mL) Pen Injector
1 mg SC QWEEK Qty: 0 0RF
Rx Instructions:
QSUNDAY
pioglitazone 45 mg Tablet
45 mg PO DAILY Qty: 0 0RF
Held
metformin 500 mg Tablet
500 mg PO BID
Hold Instructions: Resume on 07/12/25. resume 07/12 in am
Discontinued
rosuvastatin [Crestor] 20 mg tablet
20 mg PO DAILY Qty: 30 11RF
Discharge Orders:
Discharge Patient (As Directed); Ordered 07/10/25
Ordered By: Lluvia Belle
Care Plan Goals
Care Plan Goals:
Problem: Readiness for enhanced knowledge related to diagnosis and treatment plan
Goal: Understand your diagnosis and treatment plan needs, including medications if applicable.
Instructions: Know your diagnosis, underlying causes and treatment plan options, including medications if applicable. Consult with your health care team to learn about your diagnosis and treatment plan, including medications if applicable.
Discharge Date and Time
Print Language: BELARUSIAN
--- NOTE | 2025-07-10 10:40 | PN.CDI ---
CDI
- -
CDI:
Physician Documentation Request
Admit Date: 07/09/25 04:55
Dear Doctor Donna,
07/09 chemical laboratory scientist report states ' Acute on chronic diastolic heart failure with LVEDP of (sic)'
H&P does not list heart failure. Patient does not appear to take a diuretic as out patient. Patient has not received (as of yet) any diuretic as inpatient.
BNP 729 07/01
07/01 cxr states 'No convincing acute cardiopulmonary process.'
07/10 cxr impression '1. Low inspiratory volumes. 2. Findings of interstitial fibrosis, also seen on prior CT dated 05/18/2025.
3. Hazy opacity at each lung base, most likely reflective of interstitial tendinosis. Superimposed airspace disease should be excluded clinically.'
Please indicate in your progress notes if you are in agreement that the above diagnosis is valid for this patient:
____ - Acute on chronic diastolic heart failure is a valid diagnosis (Please include it in your progress notes)
____ - Acute on chronic diastolic heart failure is not a valid diagnosis for this patient
____ - Other
Use of terms such as suspected, likely, concern for, or probable are acceptable for a diagnosis that is being evaluated, monitored or treated as if it exists and can be coded in the inpatient setting, when documented at the time of discharge.
Thank you,
Angela Mendoza RN, BSN
CDI Specialist
tiger text
Please use your independent medical judgment in providing your response.
--- NOTE | 2025-07-10 10:51 | W.PN.UPDATE ---
Update Note
Progress Note Update
cdi query: Acute on chronic diastolic heart failure is a valid diagnosis
--- NOTE | 2025-07-10 11:14 | PTCARENOTE ---
Pt anxious to go home today, neuro check WNL. He denies pain, bilat femoral dsgs D+I. He ambulated in halls with card [facility] nurse, maira well but does have some GONZALEZ. Awaiting ECHO results.
[2025-07-10 11:24] LABS: Hematocrit 36.1 % (39.0-52.0); Hemoglobin 12.0 g/dL (13.0-18.0); Mean Corp Hgb Conc. 33.2 g/dL (33.0-37.0); Mean Corpuscular Volume 89.6 fL (80.0-94.0); Platelet Count 117 10^3/uL (130-400); Red Cell Dist. Width 14.0 % (11.5-14.5)
[2025-07-10] MEDS: LASIX 20 MG IV (12:26)
--- NOTE | 2025-07-10 12:57 | W.PN.CARDCBS ---
Addendum entered and electronically signed by Farrah Ham DO 07/10/25 13:47:
I saw and examined the patient.
The Second Baller's note was reviewed and I agree with the note.
Comment: Patient was seen and examined sitting out of bed to chair. He has had difficulty with urination history of BPH followed by outpatient urology now with an indwelling Dey catheter. He denies chest pain or pressure. No groin pain.
GEN: No distress, awake, alert, oriented x3. sitting in chair
HEENT:mmm
LUNGS: Crackles B/L bases, no wheezes
CV: Reg, S1/S2, 1/6 syst LSB
ABD: soft, BS+, NT/ND
: + Dey
EXT: trace edema. Bilateral groin sites intact without hematoma or ecchymosis
NEURO: Gross non-focal
Plan:
-s/p L TF TAVR 07/10/25
- Hemodynamically stable in sinus rhythm
- Echo this am reviewed with interventional cardiology: normal LV systolic function. TAVR well seated with new mild-moderate paravalvular leak with higher mean gradient 18mmHg. No pericardial effusion
-Will give Lasix 20mg IV now and send home on Lasix 20mg daily
- Repeat TAVR echo scheduled for 08/11 and follow up with Dr. Contreras scheduled 08/13
- Overnight without significant bradycardia or pauses. He does have preexisting RBBB and LAFB. OP monitor placed
- Known BPH with urine retention; plan to discharge with Dey catheter and outpatient urology follow-up
-Cardiac rehab
Outpatient follow-up with his usual final application reviewer, Dr. Potts following visit with Dr. Contreras
D/w nursing, CT surg CLAIM APPROVER
Original Note:
Today's Communication / Plan
-
s/p TAVR
post echo with mild to mod paravalvular leak
repeat echo 08/11 and follow up with Dr. Contreras scheduled 08/13
rhythm stable. plan for monitor given preexisting RBBB/LAFB
plan for DC
Impression / Plan
-
Primary Aerospace Medicine Physician: Dr. Moises Potts
Assessment:
- Severe symptomatic s/p Left TF TAVR 26 mm nominal Petit TAVR 07/09/25
- Acute on chronic HFpEF
- Severe interstitial pulmonary fibrosis
- Hypertension
- Hyperlipidemia
- BPH with hydronephrosis secondary to significant bladder distention and urinary retention
- Gout
- Diabetes II
- Preexisting RBBB and LAFB
ECHO 07/09/25: Limited echo post TAVR, normal EF, #26 Petit TAVR with peak/mean gradients 18/9 mmHg, no AR
ECHO 07/10/2025: mod cLVH, EF 56%, mitral sclerosis with mild to mod MR, #26mm Petit TAVR , peak/mean 33/18mmHg, mild to mod paravalvular aortic regurg seen, trivial pericardial effusion
Plan:
-s/p L TF TAVR 07/10/25
-noted by echo today to have mild paravalvular leak with slightly higher gradients. reviewed with patient/ at bedside.
-repeat TAVR echo scheduled for 08/11 and follow up with Dr. Contreras scheduled 08/13
-he has a preexisting RBBB and LAFB. in SR overnight without kamila or pauses. plan for monitor upon DC
-noted to have acute on chronic CHF by LVEDP at time of TAVR. will give IV lasix 20mg now then DC on 20mg po daily.
-also with urine retention, pt being DC'd with dey
-d/w nursing, CT surg CLAIM APPROVER
Progress Note - Aerospace Medicine Physician
Subjective
Date of Service: July 10, 2025
feeling well.
Objective
Labs:
07/10/25 11:17
07/10/25 03:21
Labs
Hgb 12.0 g/dL (13.0-18.0) L 07/10/25 11:17
Hct 36.1 % (39.0-52.0) L 07/10/25 11:17
Plt Count 117 10^3/uL (130-400) L 07/10/25 11:17
PT 13.5 Sec (11.4-14.6) 07/01/25 12:40
INR 0.98 07/01/25 12:40
Sodium 137 mmol/L (135-145) 07/10/25 03:21
Potassium 3.8 mmol/L (3.5-5.1) 07/10/25 03:21
BUN 24 mg/dl (9-20) H 07/10/25 03:21
Creatinine 1.0 mg/dL (0.7-1.3) 07/10/25 03:21
Glucose 96 mg/dl (70-99) 07/10/25 03:21
Vital Signs and I&O:
Vital Signs
Temp Pulse Resp BP Pulse Ox
97.6 F 76 17 109/56 96
07/10/25 11:10 07/10/25 10:00 07/10/25 11:10 07/10/25 09:54 07/10/25 11:10
Vital Signs
Temp Pulse Resp BP Pulse Ox
97.6 F 76 17 109/56 96
07/10/25 11:10 07/10/25 10:00 07/10/25 11:10 07/10/25 09:54 07/10/25 11:10
Intake & Output
07/08/25 07/09/25 07/10/25 07/11/25
07:59 07:59 07:59 07:59
Intake Total 3740 / 3740
Output Total 2575 / 2575 850 / 850
Balance 1165 / 1165 -850 / -850
Physical Exam
Physical Exam
GEN: No distress, awake, alert, oriented x3. sitting in chair
HEENT: supple, anicteric, mmm, eomi
LUNGS: Crackles B/L bases, no wheezes
CV: Reg, S1/S2, 1/6 syst LSB
ABD: soft, BS+, NT/ND
EXT: No cyanosis, clubbing, edema
NEURO: Gross non-focal
SKIN: Warm, pink, dry. No rash
[2025-07-10 13:42] LABS: B.E. - POC -3.0 mmol/L; Glucose - POC 120 mg/dl (70-99); HCO3 - POC 23 mmol/L (21-28); Hematocrit - POC 35 % PCV (42-52); Hemodilution- POC No; Hemoglobin Calculated - POC 11.7; Ionized Calcium - POC 1.18 mmol/L (1.15-1.33); Lactate - POC 0.52 mmol/L (0.36-0.75); O2 Saturation %Calculated-POC 99.5 % (94-98); PCO2 - POC 46 mmHg (35-48); PO2 - POC 184 mmHg (83-108); Potassium - POC 4.1 mmol/L (3.5-5.1); Sodium - POC 139 mmol/L (136-145); Specimen Type - POC Arterial; pH - POC 7.31 (7.35-7.45)
--- NOTE | 2025-07-10 14:19 | PTCARENOTE ---
Discharge instructions reviewed with Pt and his as well as dey catheter care. Pt is being discharged with his dey catheter. Pt instructed on leg bag use. Urinary catheter care instructions for at home printed out from [facility] patient
education site. Pt also put his rhythm star monitor on with assist prior to discharge. He expressed understanding his instructions.
== END 2025-07-10 14:40 | disposition home or self-care (01) | DRG 266 ==
LOC: IVU 04:55
PROVIDERS: Nurse Practitioner; Nurse Practitioner Acute Care; Physician Assistant Medical; ADMITTING PHYSICIAN Thoracic Surgery (Cardiothoracic Vascular Surgery); CONSULT PHYSICIAN Internal Medicine Interventional Cardiology; CONSULT PHYSICIAN Urology; FAMILY PHYSICIAN Internal Medicine
PROC: 02RF38Z Replacement of Aortic Valve with Zooplastic Tissue, Percutaneous Approach (ICD-10-PCS; 2025-07-09)
DX: I35.0 Nonrheumatic aortic (valve) stenosis (principal); Z00.6 Encounter for examination for normal comparison and control in clinical research program; I50.33 Acute on chronic diastolic (congestive) heart failure; N13.30 Unspecified hydronephrosis; I45.2 Bifascicular block; D62 Acute posthemorrhagic anemia; I11.0 Hypertensive heart disease with heart failure; E78.00 Pure hypercholesterolemia, unspecified; J84.10 Pulmonary fibrosis, unspecified; E11.9 Type 2 diabetes mellitus without complications; I25.10 Atherosclerotic heart disease of native coronary artery without angina pectoris; N40.1 Benign prostatic hyperplasia with lower urinary tract symptoms; R33.8 Other retention of urine; M10.9 Gout, unspecified; N32.89 Other specified disorders of bladder; Z87.891 Personal history of nicotine dependence; Z79.82 Long term (current) use of aspirin; Z79.84 Long term (current) use of oral hypoglycemic drugs
CPT/HCPCS: 33361; 36415; 71045; 71046; 80048; 80053; 81003; 81015; 82248; 82962; 83036; 83735; 83880; 85025; 85027; 85610; 86850; 86900; 86901; 87070; 93005; 93308; 93321; 93325; C1760; C1769; C1894; Q9967